=== PATIENT | female | born 1960 | race Caucasian/White ===

== ENCOUNTER 2023-03-04 14:34 | Outpatient (REF) | payer OTHER, SELFPAY ==
--- NOTE | ~2023-03-04 | XR_ITS ---
EXAMINATION: XR HAND, RIGHT CLINICAL INFORMATION: Right hand pain. No injury. COMPARISON: None available. TECHNIQUE: PA, lateral, and oblique views of the right hand. FINDINGS: Alignment is anatomic. Joint space narrowing of the first CMC joint. No displaced fracture or dislocation. No focal radiographic soft tissue swelling. XR/XR hand RT min 3V IMPRESSION: Osteoarthritis.
== END 2023-03-04 14:35 | disposition home or self-care (01) ==
LOC: HO.HMGCX 14:34
PROVIDERS: PCP Family Medicine; Visit Provider Internal Medicine
DX: M79.641 Pain in right hand (principal)
CPT/HCPCS: 73130

== ENCOUNTER 2024-08-12 08:03 | Outpatient (AMB) | payer OTHER, SELFPAY ==
[2024-08-12 08:08] VITALS: BP 130/90; PULSE 70; O2SAT 98; BMI 28.6
--- NOTE | 2024-08-12 08:08 | MHC.OFFWIV ---
Intake Vital Signs 08/12/24 08:08 Height 5 ft 8 in Weight 188 lb BMI 28.6 BP 130/90 H Blood Pressure Location Lt brachial Position Sitting Pulse 70 Pulse Source Pulse Oximeter Pulse Oximetry (%) 98 Oxygen Delivery Method Room Air Intake Visit Reasons: EP-whizzing sound Intake Note: Patient here because she had the flu about 1 week ago and is now having wheezing that has been present for a couple of days and slight cough that has been going on for a few weeks now. Patient Tobacco Use Status: Former Tobacco user Allergies No Known Allergies Allergy (Verified 08/12/24 08:17) Do you need a note to return to daycare/school/sports/work: No HPI HPI Comments History of Present Illness Details This is a 64-year-old female who presented to the walk-in clinic complaining of persistent cough and occasional wheezing x2 weeks following a flu-like illness. Patient states she was sick in bed for 6 days with flu-like symptoms including fever/chills, sore throat, nasal/sinus congestion, rhinorrhea, and productive cough. She states that the symptoms resolved and she was actually able to go on a cruise with her daughter. However, she then started to develop a dry and hacking cough, which has been persistent for the past 2 weeks. She states she occasionally hears a wheezing sound. She denies any shortness of breath. She denies any lower extremity edema. She denies any chest pain. She denies any fevers or chills. She denies any sputum production or purulence. She denies any hemoptysis. Patient is otherwise feeling well. [facility] Social History Patient Tobacco Use Status: Former Tobacco user Review of Systems Const All systems reviewed & are unremarkable except as noted in HPI and below Reports no additional complaints Eyes Reports no additional complaints ENT Reports no additional complaints Card Reports no additional complaints Resp Reports no additional complaints GI Reports no additional complaints Reports no additional complaints Musc Reports no additional complaints Skin/Breast Reports system reviewed and no additional complaints, except as documented Neuro Reports no additional complaints Psych Reports no additional complaints Endo Reports no additional complaints Handy/Lymph Reports no additional complaints Aller/Immun Reports no additional complaints Physical Exam Vital Signs: Last Vital Signs Pulse 70 08/12/24 08:08 BP 130/90 H 08/12/24 08:08 Pulse Ox 98 08/12/24 08:08 Oxygen Delivery Method Room Air 08/12/24 08:08 BMI result Body Mass Index 28.6 Const Other: Vital signs reviewed. Constitutional: Non-toxic appearing. No acute distress. Well-developed and well-nourished. HEENT: Normocephalic and atraumatic. Skin: Warm and dry. No rashes or lesions noted. Neck: Full and painless range of motion. No cervical lymphadenopathy. Cardio: Regular rate and rhythm. No murmurs, gallops, or rubs. No lower extremity edema. No JVD. Pulmonary: No respiratory distress. No accessory muscle usage. Clear to auscultation bilaterally without wheezing, crackles, or rhonchi. Gastrointestinal: Soft, nontender, and nondistended in all 4 quadrants. Musculoskeletal: Normal range of motion in joints throughout the body. No deformity or other signs of injury. Neuro: Alert and oriented x4. Cranial nerves 2-12 grossly intact. No focal deficits appreciated. Psych: Normal mood and affect. Assessment & Plan Assessment & Plan (1) Post-viral cough syndrome: Code(s): R05.8 - Other specified cough Plan: This is a 64-year-old female who presented to the walk-in clinic complaining of a dry hacking cough x2 weeks following flu-like illness. On physical examination, her lungs are clear to auscultation bilaterally and she is in no respiratory distress. She is maintaining oxygen saturations on room air. Patient very likely suffering from a post-viral cough syndrome. She was given a prescription for p.o. prednisone 40 mg daily x5 days given reports of wheezing as well as p.o. benzonatate 200 mg 3 times daily as needed for cough. Patient was instructed to follow-up here for persistent or worsening symptoms. She was instructed to proceed directly to the emergency room if she were to develop worsening sputum production/purulence, hemoptysis, lower extremity edema, or shortness of breath. Patient verbalized understanding and she is in agreement with the plan. Medications: New benzonatate 200 mg PO TID PRN 14 caps 0RF cough prednisone 40 mg (2 x 20 mg) PO DAILY 10 tabs 0RF Coding Level of Care Code Est Pt Level 3 (45284) Diagnoses Post-viral cough syndrome R05.8
== END 2024-08-12 08:57 | disposition home or self-care (01) ==
PROVIDERS: PCP Family Medicine; Visit Provider Physician Assistant Medical
DX: R05.8 Other specified cough (principal)

== ENCOUNTER → 2024-08-12 08:03 | Outpatient (BNVA) | payer OTHER, SELFPAY | PROVIDERS: PCP Family Medicine; Visit Provider Physician Assistant ==